=== PATIENT | female | born 1975 | race Caucasian/White ===

== ENCOUNTER 2016-10-25 20:49 | Emergency (ER) | payer OTHER ==
[~2016-10-25] VITALS: Ht 154.9 cm; Wt 57.6 kg
--- NOTE | 2016-10-25 21:04 | ED MVC/FALL/TRAUMA COMPLAINT ---
History of Present Illness General Chief Complaint: Fall Stated Complaint: LOWER BACK AND SHOULDER BONE Source: patient, family Exam Limitations: no limitations Vital Signs & Intake/Output Vital Signs & Intake/Output Vital Signs Date Time Temp Pulse Resp B/P Pulse O2 O2 Flow FiO2 Ox Delivery Rate 10/25 2224 98.2 80 16 124/70 98 Room Air Room Air 10/26 2055 98.6 88 18 123/77 97 Room Air Allergies Coded Allergies: No Known Allergies (10/25/16) Reconcile Medications Tylenol With Codeine (Tylenol With Codeine #3 Tablet) 300 MG-30 MG TABLET 1-2 TAB PO Q6 PRN PAIN may cause drowsiness Triage Note: PT FROM HOME C/O FALL THIS MORNING DOWN STAIRS. PT SLIPPED ON STAIRS AND LANDED ON COCCYX AND R SHOULDER PAIN. PT DENIES LOC. PT TOOK 2 ADVIL AROUND 1900 (400MG). Triage Nurses Notes Reviewed? yes : No Patient currently breastfeeds: No HPI: Patient is a 41-year-old female presents complaining of right shoulder pain and coccyx pain status post fall. Patient was walking downstairs at approximately 8 :30 AM when she slipped and fell. Patient fell down approximately 9-10 stairs. Pain is currently 5 out of 10, was more severe at home. Patient has been taking ibuprofen with mild to moderate improvement. Last dose was 400 mg at 7 PM. Patient is right-hand dominant. Patient denies head injury, neck pain, loss of consciousness. Past History Travel History Traveled to [place] past 21 day No Medical History Any Pertinent Medical History? see below for history Psychiatric: bipolar disease Surgical History Surgical History: non-contributory Psychosocial History What is your primary language Hungarian Tobacco Use: Current Daily Use Daily Tobacco Use Amount/Type: => 5 Cigarettes daily ETOH Use: denies use Illicit Drug Use: denies illicit drug use Family History Hx Contributory? No Review of Systems Review of Systems Constitutional: Reports: no symptoms. Eyes: Denies: blurred vision. Ears, Nose, Throat, Mouth: Reports: no symptoms. Respiratory: Denies: short of breath. Cardiovascular: Denies: chest pain, syncope. Gastrointestinal/Abdominal: Denies: abdominal pain. Genitourinary: Reports: no symptoms. Musculoskeletal: Reports: see HPI. Skin: Reports: no symptoms. Neurological/Psychological: Reports: no symptoms. Denies: headache, numbness. Physical Exam Physical Exam General Appearance: well developed/nourished, alert, awake Head: atraumatic, normal appearance Eyes: Bilateral: normal appearance, PERRL, EOMI. Ears, Nose, Throat, Mouth: hearing grossly normal, moist mucous membrane Neck: normal inspection, supple, full range of motion, no midline tenderness, no paraspinal tenderness Respiratory: normal breath sounds, chest non-tender, no respiratory distress, lungs clear Cardiovascular: regular rate/rhythm Gastrointestinal: soft, non-tender Back: normal inspection, normal range of motion, midline sacral and coccyx tenderness. Extremities: normal range of motion, right anterior shoulder tenderness. Full range of motion. Neurologic/Psych: no motor/sensory deficits, awake, alert, oriented x 3, normal gait, normal mood/affect Skin: intact, normal color, warm/dry Core Measures ACS in differential dx? No Severe Sepsis Present: No Septic Shock Present: No Progress Differential Diagnosis: aoritic dissection, abd injury, C/T/L spine injury, ext injury, ICH, pelvis injury, pnemothorax, spinal cord injury Plan of Care: Orders Procedure Date/time Status XRY-SHOULDER COMPLETE-RIGHT 10/26 2111 Active XRY-SACRUM AND COCCYX 10/26 2111 Active 10/25/2016 10:10:34 PM: Results of x-rays discussed with patient. No acute neurologic abnormalities. Patient appears stable for discharge with conservative treatment and follow up with her primary care doctor if no improvement. (BILL AHMADI,ALIYA) Diagnostic Imaging: Viewed by Me: Radiology Read. Discussed w/RAD: Radiology Read. Radiology Impression: PATIENT: REINIER SALAS PRESENT AGE: 41 PATIENT ACCOUNT NO: [id number] : 73 LOCATION: [facility] ORDERING PHYSICIAN: ALIYA AHMADI SERVICE DATE: 10/25/16 EXAM TYPE: RAD - XRY-SACRUM AND COCCYX; XRY-SHOULDER COMPLETE-RIGHT EXAMINATION: RIGHT SHOULDER. SACRUM AND COCCYX. CLINICAL INFORMATION: Fall, pain and tenderness sacrum/coccyx and right shoulder. COMPARISON: None. TECHNIQUE: Right shoulder 4 views. Sacrum and coccyx 3 views. FINDINGS: SACRUM AND COCCYX: There is normal symmetry of SI joints. There is no visible fracture or bony abnormality of the sacrum or coccyx. The presacral and post sacral soft tissues are normal. RIGHT SHOULDER: There is no visible acute fracture, dislocation or soft tissue abnormality. IMPRESSION: Unremarkable sacrum and coccyx. Unremarkable right shoulder exam. DICTATED BY: BEATRIZ MASCORRO MD DATE/TIME DICTATED:10/25/162146 ZOOGLER:AL DATE/TIME TRANSCRIBED:2146 CONFIDENTIAL, DO NOT COPY WITHOUT APPROPRIATE AUTHORIZATION. < Electronically signed in Other Vendor System> SIGNED BY: BEATRIZ MASCORRO MD 2152 Departure Departure Time of Disposition: 2204 Disposition: HOME OR SELF CARE Condition: Stable Clinical Impression Primary Impression: Coccyx contusion Qualifiers: Encounter type: initial encounter Qualified Code: S30.0XXA - Contusion of lower back and pelvis, initial encounter Secondary Impressions: Right shoulder strain Qualifiers: Encounter type: initial encounter Qualified Code: S46.911A - Strain of unspecified muscle, fascia and tendon at shoulder and upper arm level, right arm, initial encounter Referrals: JONNIE HOFFMAN MD (PCP/Family) Additional Instructions: Rest, ice to the affected areas for 20 minutes at least 4-5 times a day for 2 days. After 2 days switch to heat the affected areas. Take 600 mg of ibuprofen every 6-8 hours as needed for pain and inflammation. Follow-up with your primary doctor if no improvement within one week. Return to the emergency department if numbness, weakness, pain uncontrollable, or worsening of symptoms. Departure Forms: Customer Survey General Discharge Information Prescriptions: Current Visit Scripts Tylenol With Codeine (Tylenol With Codeine #3 Tablet) 1-2 TAB PO Q6 PRN PAIN #15 TAB may cause drowsiness
--- NOTE | 2016-10-25 21:53 | RADIOLOGY REPORT ---
EXAMINATION: RIGHT SHOULDER. SACRUM AND COCCYX. CLINICAL INFORMATION: Fall, pain and tenderness sacrum/coccyx and right shoulder. COMPARISON: None. TECHNIQUE: Right shoulder 4 views. Sacrum and coccyx 3 views. FINDINGS: SACRUM AND COCCYX: There is normal symmetry of SI joints. There is no visible fracture or bony abnormality of the sacrum or coccyx. The presacral and post sacral soft tissues are normal. RIGHT SHOULDER: There is no visible acute fracture, dislocation or soft tissue abnormality. IMPRESSION: Unremarkable sacrum and coccyx. Unremarkable right shoulder exam.
[2016-10-25] MEDS ORDERED: TYLENOL WITH C1 EACH PO (22:08)
[2016-10-25 22:25] VITALS: BP 124/70
== END 2016-10-25 22:26 ==
LOC: ERH 20:49
DX: S30.0XXA Contusion of lower back and pelvis, initial encounter (principal); S46.911A Strain of unspecified muscle, fascia and tendon at shoulder and upper arm level, right arm, initial encounter; W10.9XXA Fall (on) (from) unspecified stairs and steps, initial encounter; Y93.01 Activity, walking, marching and hiking; Y92.9 Unspecified place or not applicable
CPT/HCPCS: 72220; 73030-RT